=== PATIENT | female | born 1980 | race Caucasian/White ===

== ENCOUNTER 2016-12-17 14:00 | Outpatient (RCR) | payer MEDICAID ==
[~2016-12-17 14:00] MED LIST: ACET50TA PO; ANUS2.5C2 TOP; BENA25TA4 PO; DOCU10ELUD PO; IBUP600T26 PO; MOM30SS PO; PREN27TA3 PO; PRIL40CA PO; VENL37CA PO; ZYRT10TA14 PO
== END 2016-12-18 | disposition home or self-care (01) ==
LOC: M OUTALCOH 14:00
PROVIDERS: ATTEND Psychiatry & Neurology Psychiatry
DX: F11.20 Opioid dependence, uncomplicated (principal); F12.10 Cannabis abuse, uncomplicated

== ENCOUNTER 2017-01-14 16:00 | Outpatient (RCR) | payer MEDICAID | END 2017-01-15 | LOC: M OUTALCOH 16:00 | PROVIDERS: ATTEND Psychiatry & Neurology Psychiatry | DX: F11.20 Opioid dependence, uncomplicated (principal); F12.10 Cannabis abuse, uncomplicated ==

== ENCOUNTER 2017-02-11 16:00 | Outpatient (RCR) | payer MEDICAID | END 2017-02-15 | LOC: M OUTALCOH 16:00 | PROVIDERS: ATTEND Psychiatry & Neurology Psychiatry | DX: F11.20 Opioid dependence, uncomplicated (principal); F12.10 Cannabis abuse, uncomplicated ==

== ENCOUNTER 2017-03-04 13:00 | Outpatient (RCR) | payer MEDICAID | END 2017-03-17 | LOC: M OUTALCOH 13:00 | PROVIDERS: ATTEND Psychiatry & Neurology Psychiatry | DX: F11.20 Opioid dependence, uncomplicated (principal); F12.10 Cannabis abuse, uncomplicated ==

== ENCOUNTER → 2019-11-30 | Outpatient (CLI) | payer MEDICAID ==
[~2019-11-30] MED LIST changes: -ACET50TA PO; -DOCU10ELUD PO; +DOCU5LIQ PO; +MAPA500T17 PO
== END ==
LOC: M OUTALCOH 08:47
PROVIDERS: ATTEND Psychiatry & Neurology Addiction Medicine
DX: Z03.89 Encounter for observation for other suspected diseases and conditions ruled out (principal)

== ENCOUNTER → 2019-12-18 | Outpatient (RCR) | payer MEDICAID | LOC: M OUTALCOH 15:01 | PROVIDERS: ATTEND Psychiatry & Neurology Addiction Medicine | DX: F11.20 Opioid dependence, uncomplicated (principal); F12.10 Cannabis abuse, uncomplicated ==

== ENCOUNTER 2021-07-06 12:15 | Emergency (ER) | payer OTHER, MEDICAID ==
[~2021-07-06] VITALS: Ht 162.6 cm; Wt 100.6 kg
--- NOTE | 2021-07-06 14:52 | REP ---
INDICATION: RIGHT UPPER ABD PAIN. COMPARISON: 11/05/2013 FINDINGS: Multiple ultrasonographic images of the liver show diffuse increased echoes throughout the hepatic parenchyma without evidence of a mass or ductal dilatation. The common bile duct measures approximately 8 mm in its greatest transverse dimension. Multiple ultrasonographic images of the gallbladder show no focal or diffuse gallbladder wall thickening. There are no echogenic foci within the gallbladder lumen, which casts acoustic shadows. There is no pericholecystic edema. Images of the pancreatic region show no gross abnormality. The imaged portion of the right kidney is unremarkable. IMPRESSION: 1. There is mild diffuse fatty infiltration of the liver. 2. There is dilatation of the common bile duct the etiology which is uncertain. Close interval follow-up is recommended. Consider MRCP at this time. Accredited by the [employer] in General Ultrasound. <Electronically signed by Ricardo Menjivar > 07/06/21 0525
[2021-07-06] MEDS ORDERED: ONDANSETRON 4 MG ORAL DISINTEGRATING TAB PO ONE (14:55)
[2021-07-06] MEDS ORDERED: KETOROLAC TROMETHAMINE 10 MG TAB PO ONE (14:55)
[2021-07-06 15:55] LABS: ALBUMIN 4.4 GM/DL (3.2-5.2); ALT/SGPT 24 U/L (12-78); AMYLASE 96 U/L (25-115); BILIRUBIN,DIRECT 0.1 MG/DL (0.0-0.2); BILIRUBIN,TOTAL 1.2 MG/DL (0.2-1.0); BLOOD UREA NITROGEN 23 MG/DL (7-18); CALCIUM LEVEL 9.5 MG/DL (8.5-10.1); CARBON DIOXIDE LEVEL 23 MEQ/L (21-32); CHLORIDE LEVEL 106 MEQ/L (98-107); CREATININE FOR GFR 0.81 MG/DL (0.55-1.30); GLOMERULAR FILTRATION RATE > 60.0 (>60); GLUCOSE, FASTING 89 MG/DL (70-100); LIPASE 328 U/L (73-393); POTASSIUM SERUM 4.5 MEQ/L (3.5-5.1); SODIUM LEVEL 137 MEQ/L (136-145); TOTAL PROTEIN 8.1 GM/DL (6.4-8.2)
[2021-07-06 15:57] LABS: BASO % 0.2 % (0.0-1.0); EOS % 0.1 % (0.0-3.0); HEMOGLOBIN 15.5 g/dl (12.0-15.5); LYMPH # 3.1 10^3/uL (1.5-5.0); LYMPH % 23.7 % (24.0-44.0); MEAN CORPUSCULAR HEMOGLOBIN 28.6 pg (27.0-33.0); MEAN CORPUSCULAR HGB CONC 33.7 g/dl (32.0-36.5); MEAN CORPUSCULAR VOLUME 84.9 fl (80.0-96.0); MONO # 0.8 10^3/uL (0.0-0.8); NEUTROPHILS % 69.5 % (36.0-66.0); PLATELET COUNT, AUTOMATED 262 10^3/uL (150-450); RED BLOOD COUNT 5.42 10^6/uL (4.00-5.40); WHITE BLOOD COUNT 12.9 10^3/uL (4.0-10.0)
[2021-07-06] MEDS ORDERED: ISOVUE-370 76% 100ML VIAL As Ordered ONE (16:44)
[2021-07-06] MEDS ORDERED: NS 1,000 ML IV ONE (16:45)
--- NOTE | 2021-07-06 17:43 | REPVR ---
PROCEDURE INFORMATION: Exam: CT Abdomen And Pelvis With Contrast Exam date and time: 07/06/2021 4:37 PM Age: 41 years old Clinical indication: Abdominal pain; Additional info: Ruq pain TECHNIQUE: Imaging protocol: Computed tomography of the abdomen and pelvis with contrast. Radiation optimization: All CT scans at this facility use at least one of these dose optimization techniques: automated exposure control; mA and/or kV adjustment per patient size (includes targeted exams where dose is matched to clinical indication); or iterative reconstruction. Contrast material: ISOVUE 370; Contrast volume: 100 ml; Contrast route: INTRAVENOUS (IV); COMPARISON: US PELVIC NON-OB COMPLETE 11/02/2016 10:25 AM FINDINGS: Liver: The liver is very fatty enlarged 190 mm. Gallbladder and bile ducts: Normal. No calcified stones. No ductal dilation. Pancreas: Normal. No ductal dilation. Spleen: Normal. No splenomegaly. Adrenal glands: Normal. No mass. Kidneys and ureters: Normal. No hydronephrosis. Stomach and bowel: There are few scattered colonic diverticula without evidence of acute diverticulitis. Appendix: Appendix is seen appears normal. Intraperitoneal space: There is a calcification versus surgical clip in the right lower quadrant. There is a calcification or surgical clip anteriorly within the left pelvis. Vasculature: Unremarkable. No abdominal aortic aneurysm. Lymph nodes: Unremarkable. No enlarged lymph nodes. Urinary bladder: Unremarkable as visualized. Reproductive: Unremarkable as visualized. Bones/joints: Unremarkable. No acute fracture. Soft tissues: Unremarkable. IMPRESSION: 1. Large fatty liver. 2. No evidence of appendicitis. Electronically signed by: Jevon Wright On 07/06/2021 17:42:29 PM
[2021-07-06] MEDS ORDERED: GI COCKTAIL 50ML BTL(HYOSCYAMINE/MAALOX/LIDOCAINE VISCOUS)(1:3:1) PO ONE (18:25)
[2021-07-06 21:17] VITALS: BP 134/58
--- NOTE | 2021-07-06 23:42 | CR ---
CONSULTATION DATE: 07/06/2021 REASON FOR CONSULTATION: Abdominal pain. HISTORY OF PRESENT ILLNESS: The patient is a 41-year-old woman who presented to the Emergency Department at approximately noon on the 06 of July complaining of abdominal pain with nausea and vomiting. She describes that while at [email or web address] on Saturday, the 03 of July, she described a sharp pain in the epigastrium. She rested in the shade for a while and had some mild persistent discomfort. She awoke on the morning of Saturday, , with abdominal pain across the upper abdomen with frequent bouts of nausea and vomiting. She reports vomiting about every 20 minutes. She also noted the onset of some diarrhea. She describes some intermittent sharp epigastric pains. She was seen at an [facility] on the evening of the 05 of July. She has had some less frequent, but persistent, nausea and vomiting. She was given an order for an ultrasound to evaluate her gallbladder and this was scheduled for some time in the next week or so. The patient reports that her last episode of emesis was at approximately 4:00 in the morning today. She has not had anything to eat or drink since then and has had no further vomiting. She presented to the Emergency Department because of her persistent discomfort. She denies any history of prior similar attacks. In the Emergency Department, she underwent evaluation with laboratory studies and had a gallbladder ultrasound and CT scan of the abdomen and pelvis obtained. I am now asked to evaluate the patient regarding her discomfort. MEDICATIONS: Patient reports she is on no prescription medications, but uses Ibuprofen as needed. ALLERGIES: Patient denies any known drug allergies, although reports she did have some hives in the arm, she received some morphine in once. PAST MEDICAL HISTORY: Significant for morbid obesity. She denies any heart, lung or endocrine problems. PAST SURGICAL HISTORY: Significant for a tubal ligation approximately 8 years ago. FAMILY HISTORY: Noncontributory. SOCIAL HISTORY: Patient is a current daily smoker. She denies any significant alcohol use and denies any use of recreational drugs. REVIEW OF SYSTEMS: Shows no history of chest pain or palpitations. She denies cough, wheezing or sputum production. She does report having had some sensation of being chilled over the last couple days. She has no bone or joint issues. She denies any history of DVT or pulmonary embolus or other blood clotting disorder. She has not noticed any blood in her stool and denies any history of jaundice, Hepatitis or pancreatitis. PHYSICAL EXAMINATION: GENERAL: Reveals a pleasant woman lying quietly on the ER stretcher. MOST RECENT VITAL SIGNS: Temperature 98, pulse 71, respirations 16 and blood pressure 134/58. Pulse oximetry on room air is normal. HEENT: She is alert and oriented x3. Mucous membranes are perhaps slightly tachy. The neck is supple. She has some redness of the skin of her upper chest and shoulders, consistent with a recent sunburn. SKIN: Warm and dry. HEART: Shows a regular rhythm at a rate of 70. There is no murmur identified. LUNGS: Clear to auscultation. ABDOMEN: Obese. She has active bowel sounds in all four quadrants. The abdomen is soft and without significant point tenderness. There is no mass palpable. She has no evident hernia. EXTREMITIES: She has palpable radial and dorsalis pedis pulses bilaterally with no peripheral edema. LABORATORY DATA: CBC showing white count 13, hemoglobin 16, hematocrit 46 and platelet count 262,000. Differential count shows 70% neutrophils, 24% lymphocytes and 6% monocytes. Chemistry profile shows sodium 137, potassium 4.5, chloride 106, CO2 23, BUN 23, creatinine 0.8 and glucose 89. Total bilirubin 1.2 but the other liver function tests are entirely normal. Her amylase and lipase are also normal. She had a urinalysis that described the urine color as ida with some cloudiness and the testing showed 1+ ketones, 3+ blood with a 1+ urine leukocyte esterase. There were 9 white cells and too numerous to count red cells on high power field examination of her urine sample. She had a gallbladder ultrasound obtained. This was read by radiology as showing no gallstones, no gallbladder wall thickening or pericholecystic fluid. There was a suggestion that the common bile duct was perhaps slightly enlarged at 8 mm. Fatty infiltration of the liver diffusely was noted. She subsequently had a CT scan of the abdomen and pelvis. This was also read by radiology as showing fatty infiltration of the liver. Gallbladder and bile ducts were described as normal. There was no evidence of free air, free fluid, or bowel obstruction. The appendix was noted and was normal. IMPRESSION: Patient reports some upper abdominal pain over the last 3-4 days. This started as some epigastric discomfort on Saturday and developed into full blown nausea and vomiting with some diarrhea on Saturday and she has now got some fairly mild persistent epigastric discomfort. Her history I think is consistent with some form of probably viral gastroenteritis. RECOMMENDATIONS: At this point, I would recommend that she be started on some clear liquids. She does not appear to be sick enough to warrant hospitalization for this. I believe she could be discharged home with some instructions to begin clear liquids such as Gatorade cautiously and gradually advance her diet over the next several days as tolerated. If her symptoms recur or worsen, then return to the Emergency Department would be reasonable for reassessment. She apparently does not have a primary care physician at this time.
--- NOTE | 2021-07-10 13:13 | ED PDOC ---
Post-Departure Follow-Up dr [facility] faxed formal report of gb us for fu Carl Macedo MD Jul 10, 2021 13:13
== END 2021-07-06 21:21 | disposition home or self-care (01) ==
LOC: M ED 12:15
DX: K52.9 Noninfective gastroenteritis and colitis, unspecified (principal); F15.10 Other stimulant abuse, uncomplicated; F17.210 Nicotine dependence, cigarettes, uncomplicated; Z79.899 Other long term (current) drug therapy
CPT/HCPCS: 74177; 76705; 80048; 80076; 81001; 82150; 83690; 85025; 87086; 96360; 96361; 99284; Q0162; Q9967

== ENCOUNTER → 2021-11-29 | Outpatient (REF) | payer OTHER | LOC: M LAB REF 16:32 | PROVIDERS: ATTEND Physician Assistant Medical | DX: R50.9 Fever, unspecified (principal) ==

== ENCOUNTER → 2024-05-09 | Outpatient (REF) | payer OTHER | LOC: M LAB REF 18:32 | PROVIDERS: ATTEND Physician Assistant Medical | DX: L02.211 Cutaneous abscess of abdominal wall (principal) ==